=== PATIENT | male | born 1985 | race African-American/Black ===

== ENCOUNTER 2016-08-21 07:34 | Emergency (ER) | payer SELFPAY ==
[~2016-08-21] VITALS: Ht 185.4 cm; Wt 86.2 kg
[2016-08-21 07:52] VITALS: BP 117/78
[2016-08-21 08:31] LABS: Basophils # (auto) 0 uL; Basophils % (auto) 0.6 % (0.0-2.0); Eosinophils # (auto) 0.2 uL; Eosinophils % (auto) 3.1 % (0.0-7.0); Hematocrit 51.7 % (41.0-53.0); Hemoglobin 16.7 g/dL (13.5-17.5); Lymphocytes # (auto) 2.1 uL; Lymphocytes % (auto) 27.8 % (10.0-50.0); Mean Corpuscular Hemoglobin 28.7 pg (28.0-32.0); Mean Corpuscular Hgb Conc. 32.2 g/dL (32.0-36.0); Mean Platelet Volume 11.9 fL (7.4-10.4); Monocytes # (auto) 0.5 uL; Monocytes % (auto) 6.2 % (0.0-12.0); Neutrophils # (auto) 4.6 uL; Neutrophils % (auto) 62.3 % (37.0-80.0); Platelet Count (auto) 161 10^3/uL (140-450); Red Cell Distribution Width 13.3 % (11.6-16.0); SUSPECT VIEW TRANSMISSION; White Blood Cell 7.4 10^3/uL (4.4-10.8)
[2016-08-21 08:43] LABS: BUN/Creatinine Ratio 9.7; Calcium 8.7 mg/dL (8.5-10.1); Magnesium 2.4 mg/dL (1.6-2.6); Potassium 4.2 mmol/L (3.5-5.1)
[2016-08-21 08:46] LABS: Bilirubin, Total 0.6 mg/dL (0.2-1.0); Total Protein 7.8 g/dL (6.4-8.2)
[2016-08-21 09:56] LABS: Giant Platelets Few; Large Platelets MODERATE; Platelet Estimate Adequate
== END 2016-08-21 10:14 | disposition left against medical advice (07) ==
LOC: ER 07:34
DX: R07.89 Other chest pain (principal); Z53.21 Procedure and treatment not carried out due to patient leaving prior to being seen by health care provider
CPT/HCPCS: 36415; 71020; 80053; 83735; 84484; 85025; 93005